=== PATIENT | male | born 1955 | race Hispanic/Latino ===

== ENCOUNTER 2024-09-22 13:04 | Emergency (ER) | payer SELFPAY ==
[~2024-09-22] VITALS: Ht 152.4 cm; Wt 54.0 kg
[2024-09-22] MEDS ORDERED: ASPIRIN 81 MG/TAB PO ONE (13:35)
[2024-09-22] MEDS ORDERED: Pantoprazole Sodium 40 MG VIAL (Protonix) IV ONE (13:35)
[2024-09-22] MEDS ORDERED: FAMOTIDINE 10MG/ML 2ML SDV IV ONE (13:40)
[2024-09-22 13:52] LABS: BASO% 0.4 % (0-3); HEMATOCRIT 41.1 % (39.0-50.0); HEMOGLOBIN 13.6 g/dl (14.0-18.0); IMMATURE GRANULOCYTES 0.1 % (0.0-5.0); LYMPH% 25.8 % (15-41); MEAN CELL VOLUME 88.6 fL CALC (80.0-100.0); MEAN CORPUSCULAR HGB 29.3 pG CALC (26.0-32.0); MEAN CORPUSCULAR HGB CONC 33.1 g/dL CAL (32.0-36.0); MONO% 7.1 % (2-13); NEUT# 4.44 thou/uL (1.82-7.42); NEUT% 65.6 % (42-76); RED BLOOD COUNT 4.64 mill/uL (4.70-6.10); RED CELL DISTRI WIDTH 13.1 % (11.5-15.5)
[2024-09-22 14:06] LABS: ALBUMIN 3.9 g/dL (3.2-5.0); ALKALINE PHOSPHATASE 92 u/l (38-126); ANION GAP 11 (6-22 (CALC)); BILIRUBIN, TOTAL 0.7 mg/dL (0.2-1.3); BUN 15 mg/dL (8-23); BUN/CREATININE RATIO 22 (12-20 (CALC)); CARBON DIOXIDE 25 mmol/l (22-30); CHLORIDE 108 mmol/l (95-108); CREATININE 0.7 mg/dL (0.7-1.3); ESTIMATED GFR 100 ML/MIN (>=90 (CALC)); POTASSIUM 3.9 mmol/l (3.5-5.1); SGOT/AST 36 u/l (19-48); SODIUM 139 mmol/l (137-146); TOTAL PROTEIN 7.5 g/dL (6.3-8.2)
[2024-09-22 15:15] VITALS: BP 127/61
[2024-09-22 15:18] LABS: AMYLASE 159 u/l (30-110); LIPASE 108 u/l (23-300)
[2024-09-22 15:30] VITALS: BP 131/67
[2024-09-22 15:45] VITALS: BP 118/67
[2024-09-22] MEDS ORDERED: PROTONIX40 M2 PO (17:49)
[2024-09-22] MEDS ORDERED: NAPROXEN500 MG PO (17:49)
[2024-09-22 17:59] VITALS: BP 118/67
== END 2024-09-22 17:15 | disposition home or self-care (01) | DRG 392 ==
LOC: ED 13:04
PROVIDERS: Nurse Practitioner
DX: K29.70 Gastritis, unspecified, without bleeding (principal); R07.89 Other chest pain
CPT/HCPCS: J2470; Q9967